=== PATIENT | male | born 1965 | race Caucasian/White ===

== ENCOUNTER 2020-01-09 09:16 | Emergency (ER) | payer MEDICARE, MEDICAID ==
[~2020-01-09] VITALS: Ht 182.9 cm; Wt 65.9 kg
[2020-01-09 09:31] VITALS: Ht 182.9 cm; Wt 65.9 kg
[2020-01-09] MEDS ORDERED: METHOCARBAMOL500 MG PO (10:39)
[2020-01-09] MEDS ORDERED: NAPROSYN500 MG PO (10:39)
[2020-01-09 11:39] VITALS: BP 131/94
== END 2020-01-09 11:40 | disposition home or self-care (01) ==
LOC: D.ER 09:16
DX: S29.012A Strain of muscle and tendon of back wall of thorax, initial encounter (principal); Z86.73 Personal history of transient ischemic attack (TIA), and cerebral infarction without residual deficits; K21.9 Gastro-esophageal reflux disease without esophagitis; W01.0XXA Fall on same level from slipping, tripping and stumbling without subsequent striking against object, initial encounter; Y93.9 Activity, unspecified; Y92.9 Unspecified place or not applicable; M54.5 Low back pain